=== PATIENT | female | born 1990 | race Caucasian/White ===

== ENCOUNTER 2022-02-20 15:31 | Emergency (ER) | payer OTHER ==
[~2022-02-20] VITALS: Ht 162.6 cm; Wt 77.3 kg
[2022-02-20 15:36] VITALS: BP 129/67
--- NOTE | 2022-02-20 15:58 | NUR ---
KELSIE Mascorro at bedside evaluating patient.
--- NOTE | 2022-02-20 16:01 | NUR ---
31 y/o female bib self for c/o low back pain x 4 days. Per patient "she was reaching down and didn't bend her knees to reach. When patient got back up she felt a strong sharp pain to her back." And that is when back pain started since. Patient has 8/10 pain that radiates from her lower back to her legs and wraps around her stomach. Medical History: Denies NKDA
[2022-02-20] MEDS ORDERED: KETOROLAC 30 MG/ML VIAL IM ONE (16:05)
--- NOTE | 2022-02-20 16:24 | NUR ---
Patient was taken to imaging via wheelchair.
--- NOTE | 2022-02-20 16:32 | NUR ---
pt returned from xray
[2022-02-20] MEDS ORDERED: DICL100G5 TP (16:58)
[2022-02-20] MEDS ORDERED: CAPS1ADH5 TP (16:58)
[2022-02-20] MEDS ORDERED: CARI350T PO (16:58)
--- NOTE | 2022-02-20 17:00 | NUR ---
Patient appears to be resting comfortably in bed. Vital Signs within normal limits. Respirations even and unlabored.
[2022-02-20] MEDS ORDERED: ACET-8386 PO (17:05)
--- NOTE | 2022-02-20 17:09 | NUR ---
KELSIE Mascorro re-evaluating patient at bedside.
[2022-02-20 17:26] VITALS: BP 106/70
--- NOTE | 2022-02-20 17:26 | NUR ---
The patient's care was reviewed and supervised by Corine Garcia, RN, RN.
--- NOTE | 2022-02-20 17:26 | NUR ---
Patient discharged with v/s stable. Written and verbal after care instructions given. Patient alert, oriented and verbalized understanding of instructions. Ambulatory with steady gait. All questions addressed prior to discharge. ID band removed. Patient advised to follow up with PMD. Rx of Hydrocodone-Acetaminophen, Salonpas Patch and Diclofenac Sodium given. Opportunity to ask questions provided and answered.
== END 2022-02-20 17:26 | disposition home or self-care (01) ==
LOC: MED 15:31
DX: S33.5XXA Sprain of ligaments of lumbar spine, initial encounter (principal); Z88.8 Allergy status to other drugs, medicaments and biological substances; Z79.899 Other long term (current) drug therapy; X58.XXXA Exposure to other specified factors, initial encounter; Y93.89 Activity, other specified; Y92.89 Other specified places as the place of occurrence of the external cause; Y99.8 Other external cause status
CPT/HCPCS: 72080; 81002; 81025; 96372; 99283; J1885